=== PATIENT | male | born 1970 | race Asian ===

== ENCOUNTER 2018-10-24 02:28 | Inpatient (IN) | payer BC ==
[~2018-10-24] VITALS: Ht 167.6 cm; Wt 57.6 kg
[2018-10-24] MEDS ORDERED: VITA1CHW5 PO (03:59)
[2018-10-24] MEDS ORDERED: [UNRECOGNIZED DRUG - OTHER] PO (04:00)
[2018-10-24] MEDS ORDERED: MAALOX 30 ML SUSP *UDC PO PRN (04:45)
[2018-10-24] MEDS ORDERED: MOM 30ML SUSPENSION UDC PO PRN (04:45)
[2018-10-24] MEDS ORDERED: traZODone 50 MG TAB PO PRN (04:45)
[2018-10-24 05:15] VITALS: BP 145/86
[2018-10-24] MEDS: SERTRALINE HCL 50 MG TAB PO SCH (11:49)
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
--- NOTE | 2018-10-24 12:21 | HPEPDOC ---
General Date of Admission October 24, 2018 at 04:44 Attending Physician: LORRAINE TOSCANO MD Chief Complaint The patient is a 48-year-old male admitted with a reason for visit of Unsp ecified Depressive Disorder. Source: Patient, RN/MD Exam Limitations: Clinical conditions Timing/Duration: Unsure Severity: Moderate History of Present Illness Patient is a 48-year-old male, who denies any prior medical history except for depression, brought to the hospital on account of major depressive episode with suicidal ideation. Review of medical records state patient had been on an antidepressant for years and was doing well. However, he decided to discontinue the medication and had a relapse when he started having suicidal thoughts with a plan to hang himself behind the family house. He was brought in for further evaluation and management. At time of assessment. Patient states he is very relieved to be here, he feels he is getting better. He denies any chest pain, shortness of breath, weakness, nausea, vomiting, abdominal pain, chills or fever. Home Medications Scheduled Ascorbic Acid (Vitamin C) 250 Mg Tab.chew, 250 MG PO DAILY, (Reported) [Kidney Stone Relief] , 1 TAB PO DAILY, (Reported) Allergies Coded Allergies: lactose (Verified Adverse Reaction, Intermediate, Stomach pain/cramping/diarrhea due to lactose intolerance, 10/24/18) Past Medical History Medical History Denies Surgical History He denies Family History Father with prostate cancer Social History * Smoker: Denies Alcohol: Denies Drugs: denies A-FIB/CHADSVASC A-FIB History Current/History of A-Fib/PAF?: No Current Oral Anticoagulant The: No Review of Systems Other systems A pertinent 10 point review of systems was completed, negative except as stated in the history of presenting illness Physical Examination Other physical findings GENERAL: NAD SKIN : Warm, dry intact HEENT: Atraumatic, normocephalic, PERRL, moist mucous membrane CARDIOVASCULAR: Regular rate and rhythm, S1S2, no JVD, no edema, distal pulses + and palpable RESP: CTAB, no accessory muscle use noted ABDOMEN: BS+ non distended non tender MS: no joint deformities NEURO: Alert and oriented x 3, CN2-12 grossly intact PSYCH: no anxiety or agitation, appropriate mood and affect. Vital Signs Vital Signs Date Time Temp Pulse Resp B/P (MAP) Pulse Ox O2 Delivery O2 Flow Rate FiO2 10/24/18 05:15 98.5 74 16 145/86 (105) 98 Assessment/Plan Depression Suicidal ideation DVT prophylaxis PLAN In the unit he is frequently ambulatory and there is no need for DVT prophylaxis At this time patient has no acute medical problems or underlying comorbidities requiring active follow-up. Medical team will sign off, please re-consult as needed. Plan / VTE VTE Prophylaxis Ordered?: No VTE Exclusion Mechanical Proph: Low Risk for VTE LAW GREENBERG October 24, 2018 12:21
[2018-10-24 18:40] VITALS: BP 137/79
[2018-10-25 06:43] VITALS: BP 110/54
[2018-10-25] MEDS: SERTRALINE HCL 50 MG TAB PO SCH (08:17)
--- NOTE | 2018-10-25 14:12 | MHIPNPDOC ---
[facility] Progress Note Progress Note DATE OF SERVICE: 10/25/18 HISTORY: 48-year-old male admitted for depression. VITAL SIGNS: See below. NEW TEST RESULTS: None. CURRENT MEDICATIONS: See below. MENTAL STATUS EXAMINATION: Patient is a 48-year old male, who is, depressed, with marital difficulties. Speech: Is. Normal. Language skills are normal. Thought processes including:. Denies hallucinations, delusions, obsessions, compulsions or phobias. Thought content: Unremarkable. Abstract reasoning, and computation:, Intact. Description of associations:. No loose associations. Description of abnormal or psychotic thoughts:, No psychotic thoughts. Judgment: Fair. Insight:, Limited. Orientation: Full. Recent and remote memory: Intact. Attention span and concentration:. Poor. Language: Intact. Fund of knowledge: Full. Mood:, Sad. Affect:, Congruent. DIAGNOSES: 1. Major depressive illness. 2., Marital difficulties. 3., Stress. ASSESSMENT: 48-year-old male with depressive illness MANAGEMENT PLAN: Treat for depression and plan outpatient treatment. TIME SPENT: 30 minutes. Vital Signs Vital Signs Date Time Temp Pulse Resp B/P (MAP) Pulse Ox O2 Delivery O2 Flow Rate FiO2 10/25/18 06:43 98.0 52 16 110/54 (72) 10/24/18 05:15 98 Current Medications Current Medications Acetaminophen (Tylenol Tab) 650 mg Q6HP PRN PO HEADACHE or DISCOMFORT; Start 10/24/18 at 04:45 Al Hydrox/Mg Hydrox/Simethicone (Mylanta) 30 ml Q4HP PRN PO HEARTBURN/INDIGESTION; Start 10/24/18 at 04:45 Magnesium Hydroxide (Milk Of Magnesia) 30 ml DAILYPRN PRN PO CONSTIPATION; Start 10/24/18 at 04:45 Sertraline HCl (Zoloft) 50 mg QAM PO Last administered on 10/25/18at 08:17; Start 10/24/18 at 10:45 Trazodone HCl (Desyrel) 50 mg QHSP PRN PO INSOMNIA; Start 10/24/18 at 04:45 Allergies Coded Allergies: lactose (Verified Adverse Reaction, Intermediate, Stomach pain/cramping/di arrhea due to lactose intolerance, 10/24/18) A-FIB/CHADSVASC A-FIB History Current/History of A-Fib/PAF?: No Current Oral Anticoagulant The: No Treatment Treatment ordered: NONE ALANNAH GARZA MD October 25, 2018 14:12
[2018-10-25] MEDS: ACETAMINOPHEN TAB 650MG DOSE (2X325MG) PO PRN (16:37)
[2018-10-25 18:29] VITALS: BP 127/79
[2018-10-26 06:40] VITALS: BP 132/74
[2018-10-26] MEDS: ACETAMINOPHEN TAB 650MG DOSE (2X325MG) PO PRN (08:16)
[2018-10-26] MEDS ORDERED: SERTRALINE HCL 25 MG TABLET PO SCH (09:00)
--- NOTE | 2018-10-26 15:52 | MHIPNPDOC ---
[facility] Progress Note Progress Note DATE OF SERVICE: 10/26/18 HISTORY: 48-year-old male with depression and marital difficulties. VITAL SIGNS: See below. NEW TEST RESULTS: . CURRENT MEDICATIONS: See below. MENTAL STATUS EXAMINATION: Patient is a ready. 48-year old male, who is. Presently on increasing doses of Zoloft. Speech: Is normal Language skills are. Adequate. Thought processes including:. No disturbance of thought. Thought content:. No disturbance of thought content. Abstract reasoning, and computation:, Able to abstract. Description of associations:. No loose association. Description of abnormal or psychotic thoughts:. No abnormal or psychotic thoughts. Judgment:. Good. Insight: Good. Orientation: Full. Recent and remote memory: Intact. Attention span and concentration:. Intact. Language: As above. Fund of knowledge:. Full. Mood: Good. Affect:, Improved. DIAGNOSES: 1.. Major depressive illness. 2., Marital stressors. 3., Financial stressor. ASSESSMENT: 48-year-old male with depression and marital difficulties MANAGEMENT PLAN:. Continue to increase Zoloft. Continue counseling. TIME SPENT: 30 minutes. Vital Signs Vital Signs Date Time Temp Pulse Resp B/P (MAP) Pulse Ox O2 Delivery O2 Flow Rate FiO2 10/26/18 06:40 99.2 70 14 132/74 (93) 10/24/18 05:15 98 Current Medications Current Medications Acetaminophen (Tylenol Tab) 650 mg Q6HP PRN PO HEADACHE or DISCOMFORT Last administered on 10/26/18at 08:16; Start 10/24/18 at 04:45 Al Hydrox/Mg Hydrox/Simethicone (Mylanta) 30 ml Q4HP PRN PO HEARTB URN/INDIGESTION; Start 10/24/18 at 04:45 Magnesium Hydroxide (Milk Of Magnesia) 30 ml DAILYPRN PRN PO CONSTIPATION; Start 10/24/18 at 04:45 Sertraline HCl (Zoloft) 50 mg QAM PO Last administered on 10/25/18at 08:17; Start 10/24/18 at 10:45; Stop 10/25/18 at 14:17; Status DC Sertraline HCl (Zoloft) 75 mg QAM PO Last administered on 10/26/18at 08:16; Start 10/26/18 at 09:00 Trazodone HCl (Desyrel) 50 mg QHSP PRN PO INSOMNIA; Start 10/24/18 at 04:45 Allergies Coded Allergies: lactose (Verified Adverse Reaction, Intermediate, Stomach pain/cramping/diarrhea due to lactose intolerance, 10/24/18) A-FIB/CHADSVASC A-FIB History Current/History of A-Fib/PAF?: No Current Oral Anticoagulant The: No Treatment Treatment ordered: NONE ALANNAH GARZA MD October 26, 2018 15:52
[2018-10-26 18:00] VITALS: BP 133/65
[2018-10-27 06:41] VITALS: BP 128/59
[2018-10-27] MEDS: SERTRALINE 100 MG TAB PO SCH (08:08)
--- NOTE | 2018-10-27 14:35 | MHIPNPDOC ---
[facility] Progress Note Progress Note DATE OF SERVICE: 10/27/18 HISTORY: 48-year-old male with depression and marital difficulties. VITAL SIGNS: See below. NEW TEST RESULTS: None. CURRENT MEDICATIONS: See below. MENTAL STATUS EXAMINATION: Patient is a 48-year old male, who is seeing some improvement in his willingness to socialize and not stay in bed Speech: Is, normal. Language skills are. Normal. Thought processes including: No disturbance of thought process. Thought content:. No disturbance of thought content. Patient is focused on marriage and depressive symptoms. Abstract reasoning, and computation:. Normal. Description of associations: Loose associations. Description of abnormal or psychotic thoughts:. No abnormal or psychotic thoughts. Judgment:, Poor. Insight:, Limited. Orientation: Full orientation. Recent and remote memory:. No disturbance of recent or remote memory. Attention span and concentration:, Attention span, improving. Language:. No disturbance of language. Fund of knowledge: Full fund of knowledge. Mood:, Improving. Affect: Congruent. DIAGNOSES: 1., Major depressive illness. 2., Marital stressors. 3., Financial stressors. ASSESSMENT:. Patient having only mild improvement on present dose of antidepressant. We are monitoring his headaches MANAGEMENT PLAN: As above. TIME SPENT: 30 minutes. Vital Signs Vital Signs Date Time Temp Pulse Resp B/P (MAP) Pulse Ox O2 Delivery O2 Flow Rate FiO2 10/27/18 06:41 97.8 68 14 128/59 (82) 10/24/18 05:15 98 Current Medications Current Medications Acetaminophen (Tylenol Tab) 650 mg Q6HP PRN PO HEADACHE or DISCOMFORT Last administered on 10/26/18at 08:16; Start 10/24/18 at 04:45 Al Hydrox/Mg Hydrox/Simethicone (Mylanta) 30 ml Q4HP PRN PO HEARTBURN/INDIGESTION; Start 10/24/18 at 04:45 Magnesium Hydroxide (Milk Of Magnesia) 30 ml DAILYPRN PRN PO CONSTIPATION; Start 10/24/18 at 04:45 Sertraline HCl (Zoloft) 50 mg QAM PO Last administered on 10/25/18at 08:17; Start 10/24/18 at 10:45; Stop 10/25/18 at 14:17; Status DC Sertraline HCl (Zoloft) 75 mg QAM PO Last administered on 10/26/18at 08:16; Start 10/26/18 at 09:00; Stop 10/26/18 at 15:38; Status DC Sertraline HCl (Zoloft) 100 mg QAM PO Last administered on 10/27/18at 08:08; Start 10/27/18 at 09:00 Trazodone HCl (Desyrel) 50 mg QHSP PRN PO INSOMNIA; Start 10/24/18 at 04:45 Allergies Coded Allergies: lactose (Verified Adverse Reaction, Intermediate, Stomach pain/cramping/diarrhea due to lactose intolerance, 10/24/18) A-FIB/CHADSVASC A-FIB History Current/History of A-Fib/PAF?: No Current Oral Anticoagulant The: No Treatment Treatment ordered: NONE ALANNAH GARZA MD October 27, 2018 14:35
[2018-10-27 18:03] VITALS: BP 146/81
[2018-10-27] MEDS: ACETAMINOPHEN TAB 650MG DOSE (2X325MG) PO PRN (22:40)
[2018-10-28 06:36] VITALS: BP 128/65
[2018-10-28] MEDS: SERTRALINE 100 MG TAB PO SCH (08:37)
[2018-10-28 18:00] VITALS: BP 146/87
[2018-10-29 06:41] VITALS: BP 137/71
[2018-10-29] MEDS: SERTRALINE 100 MG TAB PO SCH (08:44)
--- NOTE | 2018-10-29 14:04 | MHIPNPDOC ---
[facility] Progress Note Progress Note DATE OF SERVICE: 10/29/18 HISTORY: Mood slightly improved. VITAL SIGNS: See below. NEW TEST RESULTS: None. CURRENT MEDICATIONS: See below. MENTAL STATUS EXAMINATION: Patient is a 48-year old male, who is, depressed, in the midst of marital problems. Speech: Is. Intact. Language skills are intact. Thought processes including:. No psychotic thoughts. Thought content:, Preoccupied with marital difficulties. Abstract reasoning, and computation: Able to abstract. Description of associations:. No loose associations. Description of abnormal or psychotic thoughts:. No psychotic thought. Judgment: Good. Insight: Fair Orientation: Intact. Recent and remote memory:. Intact. Attention span and concentration: Good. Language: Intact. Fund of knowledge: Intact. Mood:. Good. Affect: Congruence. DIAGNOSES: 1.. Major depression. 2., Marital stress. 3. Headaches. ASSESSMENT: As above MANAGEMENT PLAN:. Continue antidepressant therapy and suggested marital therapy. TIME SPENT: minutes. Vital Signs Vital Signs Date Time Temp Pulse Resp B/P (MAP) Pulse Ox O2 Delivery O2 Flow Rate FiO2 10/29/18 06:41 98.0 82 16 137/71 (93) 10/24/18 05:15 98 Current Medications Current Medications Acetaminophen (Tylenol Tab) 650 mg Q6HP PRN PO HEADACHE or DISCOMFORT Last administered on 10/27/18at 22:40; Start 10/24/18 at 04:45 Al Hydrox/Mg Hydrox/Simethicone (Mylanta) 30 ml Q4HP PRN PO HEARTBURN/INDIGESTION; Start 10/24/18 at 04:45 Magnesium Hydroxide (Milk Of Magnesia) 30 ml DAILYPRN PRN PO CONSTIPATION; Start 10/24/18 at 04:45 Sertraline HCl (Zoloft) 50 mg QAM PO Last administered on 10/25/18at 08:17; Start 10/24/18 at 10:45; Stop 10/25/18 at 14:17; Status DC Sertraline HCl (Zoloft) 75 mg QAM PO Last administered on 10/26/18at 08:16; Start 10/26/18 at 09:00; Stop 10/26/18 at 15:38; Status DC Sertraline HCl (Zoloft) 100 mg QAM PO Last administered on 5/22/19at 08:44; Start 10/27/18 at 09:00 Trazodone HCl (Desyrel) 50 mg QHSP PRN PO INSOMNIA; Start 10/24/18 at 04:45 Allergies Coded Allergies: lactose (Verified Adverse Reaction, Intermediate, Stomach pain/cramping/diarrhea due to lactose intolerance, 10/24/18) A-FIB/CHADSVASC A-FIB History Current/History of A-Fib/PAF?: No Current Oral Anticoagulant The: No Treatment Treatment ordered: NONE ALANNAH GARZA MD October 29, 2018 14:04
[2018-10-29 18:34] VITALS: BP 139/78
[2018-10-30 06:37] VITALS: BP 125/75
[2018-10-30] MEDS: SERTRALINE 100 MG TAB PO SCH (08:21)
--- NOTE | 2018-10-30 14:33 | MHIPNPDOC ---
[facility] Progress Note Progress Note DATE OF SERVICE: 10/30/18 HISTORY: 48-year-old male with depression. VITAL SIGNS: See below. NEW TEST RESULTS: None. CURRENT MEDICATIONS: See below. MENTAL STATUS EXAMINATION: Patient is a 48-year old male, who is. Presently being treated for depression is now approximately 6 out of 10. Speech: Is. Normal. Language skills are intact. Thought processes including:. No abnormality. Thought content:. Normal. Abstract reasoning, and computation: Able to abstract. Description of associations:. No loose association. Description of abnormal or psychotic thoughts:. No psychotic thought. Judgment: Fair. Insight:. Fair. Orientation: Intact. Recent and remote memory: Intact. Attention span and concentration:. Intact. Language: As above. Fund of knowledge: . Mood:. 6 out of 10. Affect:. Neutral. DIAGNOSES: 1. Major depressive illness 2., Relationship difficulties. ASSESSMENT: Patient improving on antidepressant therapy MANAGEMENT PLAN: As well as continue Zoloft with increased dose. TIME SPENT: 30 minutes. Vital Signs Vital Signs Date Time Temp Pulse Resp B/P (MAP) Pulse Ox O2 Delivery O2 Flow Rate FiO2 10/30/18 06:37 99.8 78 14 125/75 (92) 10/24/18 05:15 98 Current Medications Current Medications Acetaminophen (Tylenol Tab) 650 mg Q6HP PRN PO HEADACHE or DISCOMFORT Last administered on 10/27/18at 22:40; Start 10/24/18 at 04:45 Al Hydrox/Mg Hydrox/Simethicone (Mylanta) 30 ml Q4HP PRN PO HEARTBURN/INDIGESTION; Start 10/24/18 at 04:45 Magnesium Hydroxide (Milk Of Magnesia) 30 ml DAILYPRN PRN PO CONSTIPATION; Start 10/24/18 at 04:45 Sertraline HCl (Zoloft) 50 mg QAM PO Last administered on 10/25/18at 08:17; Start 10/24/18 at 10:45; Stop 10/25/18 at 14:17; Status DC Sertraline HCl (Zoloft) 75 mg QAM PO Last administered on 10/26/18at 08:16; Start 10/26/18 at 09:00; Stop 10/26/18 at 15:38; Status DC Sertraline HCl (Zoloft) 100 mg QAM PO Last administered on 10/30/18at 08:21; Start 10/27/18 at 09:00; Stop 10/30/18 at 10:31; Status DC Sertraline HCl (Zoloft) 150 mg QAM PO ; Start 10/31/18 at 09:00 Trazodone HCl (Desyrel) 50 mg QHSP PRN PO INSOMNIA; Start 10/24/18 at 04:45 Allergies Coded Allergies: lactose (Verified Adverse Reaction, Intermediate, Stomach pain/cramping/diarrhea due to lactose intolerance, 10/24/18) A-FIB/CHADSVASC A-FIB History Current/History of A-Fib/PAF?: No Current PO Anticoag Therapy: No Treatment Treatment ordered: NONE Reason Anticoagulant not given: Other (question in error) Other reason anticoagulant not: not required ALANNAH GARZA MD October 30, 2018 14:33
[2018-10-30 18:06] VITALS: BP 149/78
[2018-10-31 06:40] VITALS: BP 117/75
[2018-10-31] MEDS: SERTRALINE HCL 50 MG TAB PO SCH (08:13)
[2018-10-31 18:14] VITALS: BP 137/76
[2018-11-01 07:04] VITALS: BP 145/80
[2018-11-01] MEDS: SERTRALINE HCL 50 MG TAB PO SCH (08:10)
--- NOTE | 2018-11-01 17:32 | MHIPNPDOC ---
[facility] Progress Note Progress Note DATE OF SERVICE: 11/01/18 HISTORY: 48-year-old male with depression and insomnia. VITAL SIGNS: See below. NEW TEST RESULTS: None. CURRENT MEDICATIONS: See below. MENTAL STATUS EXAMINATION: Patient is a recently. 48-year old male, who is. Pressing improvement in mood and affect. Speech: Is normal. Language skills are. Normal. Thought processes including: No disturbance of thought process or thought content. Thought content: Normal. Abstract reasoning, and computation:, Able to abstract. Description of associations:. No loose association. Description of abnormal or psychotic thoughts: No psychotic thought. Judgment: Good. Insight:. Good. Orientation: Intact 3. Recent and remote memory:. No disturbance. Attention span and concentration: Normal. Language:. No disturbance. Fund of knowledge: Intact. Mood:. Good. Affect: bright. DIAGNOSES: 1. Major depressive illness. 2., Marital stressors. 3., Insomnia. ASSESSMENT:, Significantly improved in mood. Dischargeable Saturday or Saturday MANAGEMENT PLAN:. As above. TIME SPENT:, 30 minutes. Vital Signs Vital Signs Date Time Temp Pulse Resp B/P (MAP) Pulse Ox O2 Delivery O2 Flow Rate FiO2 11/01/18 07:04 98.6 68 16 145/80 (101) Current Medications Current Medications Acetaminophen (Tylenol Tab) 650 mg Q6HP PRN PO HEADACHE or DISCOMFORT Last administered on 10/27/18at 22:40; Start 10/24/18 at 04:45 Al Hydrox/Mg Hydrox/Simethicone (Mylanta) 30 ml Q4HP PRN PO HEARTBURN/INDIGESTION; Start 10/24/18 at 04:45 Magnesium Hydroxide (Milk Of Magnesia) 30 ml DAILYPRN PRN PO CONSTIPATION; Start 10/24/18 at 04:45 Sertraline HCl (Zoloft) 50 mg QAM PO Last administered on 10/25/18at 08:17; Start 10/24/18 at 10:45; Stop 10/25/18 at 14:17; Status DC Sertraline HCl (Zoloft) 75 mg QAM PO Last administered on 10/26/18at 08:16; Start 10/26/18 at 09:00; Stop 10/26/18 at 15:38; Status DC Sertraline HCl (Zoloft) 100 mg QAM PO Last administered on 10/30/18at 08:21; Start 10/27/18 at 09:00; Stop 10/30/18 at 10:31; Status DC Sertraline HCl (Zoloft) 150 mg QAM PO Last administered on 11/01/18at 08:10; Start 10/31/18 at 09:00 Trazodone HCl (Desyrel) 50 mg QHSP PRN PO INSOMNIA; Start 10/24/18 at 04:45 Allergies Coded Allergies: lactose (Verified Adverse Reaction, Intermediate, Stomach pain/cramping/diarrhea due to lactose intolerance, 10/24/18) ALANNAH GARZA MD November 01, 2018 17:32
[2018-11-01 18:14] VITALS: BP 142/83
[2018-11-02 06:48] VITALS: BP 119/76
[2018-11-02] MEDS: SERTRALINE HCL 50 MG TAB PO SCH (08:38)
--- NOTE | 2018-11-02 10:05 | MHIPNPDOC ---
[facility] Progress Note Progress Note DATE OF SERVICE: 11/02/18 HISTORY: 48-year-old male with severe depression and now improved. VITAL SIGNS: See below. NEW TEST RESULTS: None. CURRENT MEDICATIONS: See below. MENTAL STATUS EXAMINATION: Patient is a, V 71-year old male, who is improved mood and preparing for discharge. Speech: Is. Normal. Language skills are intact. Thought processes including:no Profound abnormalities. Thought content: Normal. Abstract reasoning, and computation: Able to abstract. Description of associations: Loose association. Description of abnormal or psychotic thoughts:. No psychotic thought. Judgment: Improved. Insight:. Improved. Orientation: Intact 3. Recent and remote memory:. Intact. Attention span and concentration: Intact. Language:. No disturbance. Fund of knowledge: Intact. Mood:, Good. Affect:, Congruent. DIAGNOSES: 1. Major depressive illness. 2., Occupational stress. 3., Marital stress. ASSESSMENT: 48-year-old male with major depression, improved on medication and with counseling MANAGEMENT PLAN: Discharged tomorrow and outpatient plans Made. TIME SPENT: minutes. Vital Signs Vital Signs Date Time Temp Pulse Resp B/P (MAP) Pulse Ox O2 Delivery O2 Flow Rate FiO2 11/02/18 06:48 98.5 74 14 119/76 (90) Current Medications Current Medications Acetaminophen (Tylenol Tab) 650 mg Q6HP PRN PO HEADACHE or DISCOMFORT Last administered on 10/27/18at 22:40; Start 10/24/18 at 04:45 Al Hydrox/Mg Hydrox/Simethicone (Mylanta) 30 ml Q4HP PRN PO HEARTBURN/INDIGESTION; Start 10/24/18 at 04:45 Magnesium Hydroxide (Milk Of Magnesia) 30 ml DAILYPRN PRN PO CONSTIPATION; Start 10/24/18 at 04:45 Sertraline HCl (Zoloft) 50 mg QAM PO Last administered on 10/25/18at 08:17; Start 10/24/18 at 10:45; Stop 10/25/18 at 14:17; Status DC Sertraline HCl (Zoloft) 75 mg QAM PO Last administered on 10/26/18at 08:16; Start 10/26/18 at 09:00; Stop 10/26/18 at 15:38; Status DC Sertraline HCl (Zoloft) 100 mg QAM PO Last administered on 10/30/18at 08:21; Start 10/27/18 at 09:00; Stop 10/30/18 at 10:31; Status DC Sertraline HCl (Zoloft) 150 mg QAM PO Last administered on 11/02/18at 08:38; Start 10/31/18 at 09:00 Trazodone HCl (Desyrel) 50 mg QHSP PRN PO INSOMNIA; Start 10/24/18 at 04:45 Allergies Coded Allergies: lactose (Verified Adverse Reaction, Intermediate, Stomach pain/cramping/diarrhea due to lactose intolerance, 10/24/18) ALANNAH GARZA MD November 02, 2018 10:05
[2018-11-02 19:24] VITALS: BP 125/74
[2018-11-03] MEDS ORDERED: TRAZO50TA PO (06:52)
[2018-11-03] MEDS ORDERED: SERT-155 PO (06:52)
--- NOTE | 2018-11-03 06:57 | MHDSPDOC ---
[facility] Discharge Summary Discharge Summary DATE OF ADMISSION: October 24, 2018 at 04:44 DATE OF DISCHARGE: DISCHARGE DIAGNOSES: 1. Major depression. 2., Marital and financial stressors. REASON FOR ADMISSION:. Patient was severely depressed with suicidal ideation CONSULTANTS INVOLVED: None TREATMENT AND PROGRESS ON THE UNIT :. Patient was treated with sertraline, which was increased to 150 mg and his mood improved significantly. HOSPITAL COURSE: As above DISCHARGE ASSESSMENT:. Major depression, improved MENTAL STATUS EXAMINATION ON DISCHARGE: Patient is a 48-year old male, who is able to return to work following treatment for depression. Speech is. Normal. Language skills are. No disturbance. Thought processes including:. No abnormalities. Thought content: Reasonable. Abstract reasoning, and computation: Able to abstract. Description of associations:. No loose associations. Description of abnormal or psychotic thoughts:. No psychotic thought. Judgment: Good. Insight:. Good. Orientation to intact 3. Recent and remote memory:. No disturbance. Attention span and concentration:. No disturbance. Language: As above. Fund of knowledge:. Intact and complete. Mood: Good. Affect: Bright MEDICATIONS ON DISCHARGE: -. Zoloft 150 mg for depression. -, Trazodone 50 mg for insomnia. PLAN/FOLLOWUP ARRANGEMENTS: Outpatient treatment arranged with suggested marital counseling. Also. The amount of time spent in the coordination of care for this patient was approximately 45 minutes. Vital Signs/I&Os Vital Signs Date Time Temp Pulse Resp B/P (MAP) Pulse Ox O2 Delivery O2 Flow Rate FiO2 11/02/18 19:24 99.6 80 14 125/74 (91) Medications Scheduled Ascorbic Acid (Vitamin C) 250 Mg Tab.chew, 250 MG PO DAILY, (Reported) [Kidney Stone Relief] , 1 TAB PO DAILY, (Reported) Allergies Coded Allergies: lactose (Verified Adverse Reaction, Intermediate, Stomach pain/cramping/diarrhea due to lactose intolerance, 10/24/18) ALANNAH GARZA MD November 03, 2018 06:57
[2018-11-03 07:14] VITALS: BP 133/77
[2018-11-03] MEDS: SERTRALINE HCL 50 MG TAB PO SCH (08:47)
== END 2018-11-03 10:15 | disposition home or self-care (01) | DRG 754 ==
LOC: M ED 02:28 → M ED INP 04:44 → M PSY 05:09
PROVIDERS: ADMIT Psychiatry & Neurology Psychiatry; ATTEND Psychiatry & Neurology Child & Adolescent Psychiatry
DX: F32.9 Major depressive disorder, single episode, unspecified (principal); E73.8 Other lactose intolerance; Z79.899 Other long term (current) drug therapy; Z87.442 Personal history of urinary calculi; Z63.0 Problems in relationship with spouse or partner; Z59.9 Problem related to housing and economic circumstances, unspecified